=== PATIENT | female | born 1980 | race Caucasian/White ===

== ENCOUNTER 2021-01-07 10:27 | Emergency (ER) | payer OTHER, SELFPAY ==
[2021-01-07] VITALS (10 sets, daily range): BP systolic 115–142; BP diastolic 66–82; PULSE 60–77; RESP 14–23; TEMP 37.1; O2SAT 98–99; BMI 39.7
--- NOTE | 2021-01-07 10:36 | DI.RAD.S_ITS ---
PROCEDURE: XR CHEST 1V INDICATIONS: chest pain TECHNIQUE: One view of the chest was acquired. COMPARISON: None. FINDINGS: Surgical changes and devices: None. Lungs and pleura: Lungs are clear. No pleural effusions or pneumothorax. Mediastinum: Mediastinal contours appear normal. Heart size is normal. Bones and chest wall: No suspicious bony lesions. Overlying soft tissues appear unremarkable. IMPRESSION: No acute cardiopulmonary disease. Dictated by: Trinidad Boyd M.D. on 01/07/2021 at 11:08 Approved by: Trinidad Boyd M.D. on 01/07/2021 at 11:09
--- NOTE | 2021-01-07 10:36 | DI.RAD.S_ITS ---
PROCEDURE: XR SHOULDER LT MIN 2V INDICATIONS: shoulder pain, radiates to chest. TECHNIQUE: 2 views of the shoulder were acquired. COMPARISON: None. FINDINGS: Bones: No fractures or dislocations. No suspicious bony lesions. Visualized ribs appear intact. Soft tissues: No suspicious soft tissue calcifications. IMPRESSION: No acute osseous abnormalities. Dictated by: Trinidad Boyd M.D. on 01/07/2021 at 11:10 Approved by: Trinidad Boyd M.D. on 01/07/2021 at 11:11
--- NOTE | 2021-01-07 10:42 | ED.CHESTPAIN ---
HPI - Chest Pain General Chief Complaint: Chest Pain Stated Complaint: Rule out cardiac sent from her Drs. Time Seen by Provider: 01/07/21 10:37 Source: patient Mode of arrival: Ambulatory Limitations: no limitations History of Present Illness HPI narrative: Patient sent here from urgent care for non reproducible left-sided shoulder pain starting last that has progressed now to infra clavicular area. No dyspnea no nausea, no diaphoresis no neuro complaints. No recent exertional chest pain. Does not take blood pressure medication or cholesterol medication. No family history of coronary disease. Has not had stress test in the past. No relief with NSAIDs at home. No injury to the shoulder. Currently 12/05 discomfort MD complaint: chest pain Related Data Home Medications Medication Instructions Recorded Confirmed brimonidine [Mirvaso] 1 gm TOPICAL #0 01/02/17 ivermectin [Soolantra] 1 moustapha TP #0 01/02/17 topiramate [Topamax] 25 mg PO BID #0 08/21/17 Previous Rx's Medication Instructions Recorded sumatriptan succinate [Imitrex] 50 mg PO QDAY #20 tab 12/29/17 Allergies Allergy/AdvReac Type Severity Reaction Status Date / Time No Known Drug Allergies Allergy Verified 01/07/21 10:40 Review of Systems Review of Systems Narrative: GENERAL: Denies chills, fatigue, malaise, fever, sweats. HEENT: Denies sinus pain, ear pain, sore throat RESPIRATORY: Denies dyspnea, cough CARDIOVASCULAR: Complains chest pain, denies palpitations GASTROINTESTINAL: Denies nausea, vomiting, abdominal pain : Denies dysuria, frequency, hematuria MUSCULOSKELETAL: denies muscle or bony pain SKIN: Denies rash, skin lesions NEUROLOGIC: Denies weakness, numbness ROS Unobtainable: All systems reviewed & are unremarkable except as noted in HPI and below Patient History Medical History (Updated 01/07/21 @ 14:22 by Jah Maki MD) Migraine with aura and without status migrainosus, not intractable (11/06/15) Surgical History History of third molar tooth extraction Status post laparoscopic supracervical hysterectomy (05/05/16) Status post tonsillectomy and adenoidectomy Social History Smoking Status: Never smoker Smoking Status: Never smoker alcohol intake frequency: 0-2 drinks per day Substance Use Type: does not use Exam Narrative Exam Narrative: GENERAL: in no distress, not toxic not dyspneic HEAD: Normocephalic. EYES: Pupils equal round No scleral icterus. No injection no discharge ENT: Mucous membranes moist. NECK: Trachea midline. CARDIOVASCULAR: Regular rate and rhythm without murmurs RESPIRATORY: Clear to auscultation. Breath sounds equal bilaterally. No wheezes, rales, or rhonchi. GASTROINTESTINAL: Abdomen soft, non-tender EXTREMITIES: No gross deformities. Nontender left shoulder. Full active range of motion without any discomfort or pain. Calves nontender BACK: No flank tenderness. NEURO: AOx4. SKIN: Warm and dry PSYCH: Not anxious, is cooperative Initial Vital Signs Initial Vital Signs: Vital Signs Temperature 98.7 F 01/07/21 10:37 Pulse Rate 67 01/07/21 10:37 Respiratory Rate 14 01/07/21 10:37 Blood Pressure 135/71 01/07/21 10:37 Pulse Oximetry 99 01/07/21 10:37 Course Course Course Narrative: Patient did have chest pain relief with nitro paste. I did speak with hospice Dr. oDss. He did see patient at bedside, he has decided patient has low risk factors and low heart score and patient does not want to be admitted and go home. No admission Orders Ordered: Discontinued Medications Acetaminophen (Acetaminophen 325 Mg Tablet) 975 mg PO NOW ONE Stop: 01/07/21 12:37 Last Admin: 01/07/21 12:39 Dose: 975 mg Documented by: JAKOB Aspirin (Aspirin 81 Mg Chew Tab) 324 mg PO NOW ONE Stop: 01/07/21 10:43 Last Admin: 01/07/21 11:18 Dose: 324 mg Documented by: JAKOB Nitroglycerin (Nitroglycerin Oint 1 Inch/Gm Oint...G.) 1 inch TOP NOW ONE Stop: 01/07/21 10:42 Last Admin: 01/07/21 11:17 Dose: 1 inch Documented by: JAKOB Reevaluation(s) Reevaluation #1: No chest pain after nitro paste. Reviewed results with patient. Understands I will be speaking with assembler billiard table and hospitalist for further disposition Time: 12:40 Reevaluation #2: Patient does not want to be admitted. She spoke with hospitalist Dr. Doss, she does not want any further testing or repeat heart enzymes. Time: 14:17 Consultations Consultation #1: Spoke with cardiology dr mead, recommends patient to be admitted for stress test. Time: 12:43 Consultation #2: Spoke with Dr. Doss, he would like to see patient 1st before deciding for disposition. Time: 12:50 Vital Signs Vital signs: Vital Signs - 8 hr 01/07/21 10:37 01/07/21 11:17 01/07/21 12:15 Temperature 98.7 F Pulse Rate 67 65 Respiratory Rate 14 14 Blood Pressure 135/71 142/82 H Pulse Oximetry 99 98 01/07/21 12:31 01/07/21 12:32 01/07/21 13:00 Temperature Pulse Rate 77 62 62 Respiratory Rate 20 16 Blood Pressure 130/66 118/68 Pulse Oximetry 99 99 01/07/21 13:30 01/07/21 14:00 01/07/21 14:01 Temperature Pulse Rate 61 60 63 Respiratory Rate 16 23 18 Blood Pressure 115/68 Pulse Oximetry 01/07/21 14:02 Temperature Pulse Rate Respiratory Rate Blood Pressure 125/67 Pulse Oximetry MDM - Chest Pain Differential Diagnosis Differential diagnosis: Likely stable angina, unstable angina pectoris and atypical chest pain Lab Data Attestation: I reviewed the patient's lab results. Result diagrams: 01/07/21 11:01 01/07/21 11:01 Labs: Lab Results 01/07/21 01/07/21 01/07/21 Range/Units 11:01 11:01 11:01 WBC 9.7 (4.5-11.0) X10^3/uL RBC 4.42 (4.0-5.2) X10^6/uL Hgb 14.2 (12.0-16.0) g/dL Hct 40.5 (36-46) % MCV 91.7 (80-100) fL MCH 32.1 (26-34) PG MCHC 35.0 (30-36) % RDW 12.3 (11.6-14.8) % Plt Count 248 (150-400) X10^3/uL Neut % (Auto) 68.9 (50-75) % Lymph % (Auto) 18.4 L (25-40) % [place] % (Auto) 6.8 (3-14) % Eos % (Auto) 5.1 H (2-4) % Baso % (Auto) 0.8 (0-2) % Neut # (Auto) 6700 (0273-5973) /uL Lymph # (Auto) 1800 (3057-9016) /uL [place] # (Auto) 700 (0-900) /uL Eos # (Auto) 500 H (0-450) /uL Baso # (Auto) 100 (0-100) /uL PT 11.9 (10.1-12.7) SECONDS INR 1.0 (0.9-1.3) APTT 33 (26.4-36.2) SECONDS Sodium 137 (137-145) mmol/L Potassium 4.1 (3.4-5.1) mmol/L Chloride 105 (98-107) mmol/L Carbon Dioxide 25 (22-32) mmol/L BUN 14 (7-17) mg/dL Creatinine 0.67 (0.52-1.04) mg/dL Estimated GFR > 60.0 (>60) mL/min BUN/Creatinine Ratio 20.9 (6-22) Glucose 101 H (70-100) mg/dL Calcium 9.4 (8.4-10.2) mg/dL Total Bilirubin 0.4 (0.2-1.3) mg/dL AST 26 (14-36) IU/L ALT 21 (<35) IU/L Alkaline Phosphatase 88 (38-126) U/L Total Creatine Kinase 94 (30-135) U/L CK-MB (CK-2) TNP CK-MB (CK-2) Rel Index TNP Troponin I < 0.012 (0.01-0.034) ng/mL Total Protein 7.0 (6.3-8.2) g/dL Albumin 4.4 (3.5-5.0) g/dL Globulin 2.6 (1.7-4.1) g/dL Albumin/Globulin Ratio 1.7 (1.0-2.8) Lipase 123 (23-300) U/L SARS-CoV-2 (PCR) (Negative) 01/07/21 Range/Units 12:46 WBC (4.5-11.0) X10^3/uL RBC (4.0-5.2) X10^6/uL Hgb (12.0-16.0) g/dL Hct (36-46) % MCV (80-100) fL MCH (26-34) PG MCHC (30-36) % RDW (11.6-14.8) % Plt Count (150-400) X10^3/uL Neut % (Auto) (50-75) % Lymph % (Auto) (25-40) % [place] % (Auto) (3-14) % Eos % (Auto) (2-4) % Baso % (Auto) (0-2) % Neut # (Auto) (3241-7416) /uL Lymph # (Auto) (9767-3102) /uL [place] # (Auto) (0-900) /uL Eos # (Auto) (0-450) /uL Baso # (Auto) (0-100) /uL PT (10.1-12.7) SECONDS INR (0.9-1.3) APTT (26.4-36.2) SECONDS Sodium (137-145) mmol/L Potassium (3.4-5.1) mmol/L Chloride (98-107) mmol/L Carbon Dioxide (22-32) mmol/L BUN (7-17) mg/dL Creatinine (0.52-1.04) mg/dL Estimated GFR (>60) mL/min BUN/Creatinine Ratio (6-22) Glucose (70-100) mg/dL Calcium (8.4-10.2) mg/dL Total Bilirubin (0.2-1.3) mg/dL AST (14-36) IU/L ALT (<35) IU/L Alkaline Phosphatase (38-126) U/L Total Creatine Kinase (30-135) U/L CK-MB (CK-2) CK-MB (CK-2) Rel Index Troponin I (0.01-0.034) ng/mL Total Protein (6.3-8.2) g/dL Albumin (3.5-5.0) g/dL Globulin (1.7-4.1) g/dL Albumin/Globulin Ratio (1.0-2.8) Lipase (23-300) U/L SARS-CoV-2 (PCR) Negative (Negative) Imaging Data Chest x-ray: Radiologist's Impression: [address] [id number] ReportSigned Patient: Rebeca Chris GMR#: [id number]: 1980Acct:[id number]/Sex: 40 / FDate of Service: 01/07/21Loc: EDAccession Number: [id number] Procedure: XR chest 1V Ordering Provider: Jah Maki MD PROCEDURE: XR CHEST 1V INDICATIONS: chest pain TECHNIQUE: One view of the chest was acquired. COMPARISON: None. FINDINGS: Surgical changes and devices: None. Lungs and pleura: Lungs are clear. No pleural effusions or pneumothorax. Mediastinum: Mediastinal contours appear normal. Heart size is normal. Bones and chest wall: No suspicious bony lesions. Overlying soft tissues appear unremarkable. IMPRESSION: No acute cardiopulmonary disease. Dictated by: Trinidad Boyd M.D. on 01/07/2021 at 11:08 Approved by: Trinidad Boyd M.D. on 01/07/2021 at 11:09 Extremity x-ray #1: Radiologist's Impression: [address] [id number] ReportSigned Patient: Rebeca Chris GMR#: [id number]: 1980Acct:[id number]/Sex: 40 / FDate of Service: 01/07/21Loc: EDAccession Number: [id number] Procedure: XR shoulder LT min 2V Ordering Provider: Jah Maki MD PROCEDURE: XR SHOULDER LT MIN 2V INDICATIONS: shoulder pain, radiates to chest. TECHNIQUE: 2 views of the shoulder were acquired. COMPARISON: None. FINDINGS: Bones: No fractures or dislocations. No suspicious bony lesions. Visualized ribs appear intact. Soft tissues: No suspicious soft tissue calcifications. IMPRESSION: No acute osseous abnormalities. Dictated by: Trinidad Boyd M.D. on 01/07/2021 at 11:10 Approved by: Trinidad Boyd M.D. on 01/07/2021 at 11:11 ECG Data Attestation: I personally reviewed and interpreted this ECG as follows: Interpretation: Sinus bradycardia rate 59 otherwise normal EKG. No ST elevation or depression. MDM Narrative Medical decision making narrative: I have spoken with cardiology and recommending admission, I did call hospitalist for admission, Dr. Doss states no indication for admission. He saw and examined patient in the emergency department. He will put a consult note into the chart. Patient re-evaluated by me and she states she does not want to be admitted now. Did speak with her at this time uncertain source of her atypical chest pain shoulder pain. She is to come back at any time if she changes her mind or if any questions or concerns. She agrees with this Discharge Plan Departure Patient Disposition: Home Clinical Impression: Atypical chest pain Instructions: DI for Atypical Chest Pain Activity Restrictions/Additional Instructions: Return immediately if you change your mind to be admitted. Return if any questions or concerns. Call primary care/clinic office today for establishment to have a family doctor to see this week for recheck. Prescriptions: No Action brimonidine [Mirvaso] 0.33 % gel 1 gm Topical Qty: 0 RF: 0 ivermectin [Soolantra] 1 % cream 1 moustapha TP Qty: 0 RF: 0 topiramate [Topamax] 25 MG tablet 25 mg PO BID Qty: 0 RF: 0 sumatriptan succinate [Imitrex] 50 MG tablet 50 mg PO QDAY Qty: 20 RF: 3 Referrals: [facility] [Outside]
[2021-01-07 11:17] LABS: Add Manual Diff / Slide Review NO; Basophils Absolute Auto 100 /uL (0-100); Basophils Percent Auto 0.8 % (0-2); Eosinophils Absolute Auto 500 /uL (0-450); Eosinophils Percent Auto 5.1 % (2-4); Hematocrit 40.5 % (36-46); Hemoglobin 14.2 g/dL (12.0-16.0); Lymphocytes Absolute Auto 1800 /uL (1100-4500); Lymphocytes Percent Auto 18.4 % (25-40); Mean Corpuscular Hemoglobin 32.1 PG (26-34); Mean Corpuscular Volume 91.7 fL (80-100); Monocytes Absolute Auto 700 /uL (0-900); Monocytes Percent Auto 6.8 % (3-14); Neutrophils Absolute Auto 6700 /uL (1500-7000); Neutrophils Percent Auto 68.9 % (50-75); Platelet Count 248 X10^3/uL (150-400); Red Blood Cell Count 4.42 X10^6/uL (4.0-5.2); Red Cell Distribution Width 12.3 % (11.6-14.8); White Blood Cell Count 9.7 X10^3/uL (4.5-11.0)
[2021-01-07] MEDS: NITROGLYCERIN OINT 1 INCH/GM OINT...G. TOP (11:17)
[2021-01-07] MEDS: ASPIRIN 81 MG CHEW TAB 324 MG PO (11:18)
[2021-01-07 11:22] LABS: Prothrombin Time 11.9 SECONDS (10.1-12.7)
[2021-01-07 11:25] LABS: Alanine Aminotransferase 21 IU/L (<35); Albumin 4.4 g/dL (3.5-5.0); Albumin Globulin Ratio 1.7 (1.0-2.8); Alkaline Phosphatase 88 U/L (38-126); Aspartate Aminotransferase 26 IU/L (14-36); BUN Creatinine Ratio 20.9 (6-22); Bilirubin Total 0.4 mg/dL (0.2-1.3); Blood Urea Nitrogen 14 mg/dL (7-17); Calcium 9.4 mg/dL (8.4-10.2); Carbon Dioxide 25 mmol/L (22-32); Chloride 105 mmol/L (98-107); Creatine Kinase 94 U/L (30-135); Estimated Glomerular Filt Rate > 60.0 mL/min (>60); Globulin 2.6 g/dL (1.7-4.1); Glucose 101 mg/dL (70-100); HEMOLYSIS < 15 (0-50); Lipase 123 U/L (23-300); PTT Partial Thromboplastin Tim 33 SECONDS (26.4-36.2); Potassium 4.1 mmol/L (3.4-5.1); Sodium 137 mmol/L (137-145)
[2021-01-07 11:37] LABS: Troponin I < 0.012 ng/mL (0.01-0.034)
[2021-01-07] MEDS: ACETAMINOPHEN 325 MG TABLET 975 MG PO (12:39)
[2021-01-07 13:55] LABS: COVID19 - ADMIT (NP swab/PCR) Negative (Negative)
--- NOTE | 2021-01-07 14:02 | PM.CN ---
History of Present Illness Consult details Date Patient Seen: 01/07/21 Time Patient Seen: 14:02 Chief complaint: Rule out cardiac sent from her Drs. Reason for consult: Chest pain Requesting provider: Jah Maki Narrative: Rebeca Chris is a 40-year-old female with a past medical history of migraines who initially presented to the outpatient clinics with concern for left-sided shoulder pain which has started radiating into her left chest area. She 1st noticed this about 4 days ago. She received her 1st dose of the phizer COVID-19 vaccine on Thursday, and the following day she went on a trip to [employer]. After that car ride she noticed a dull ache primarily over her left shoulder. This pain seemed to worsen with lifting and movement. She did not try any pain relief at home. It initially improved somewhat but did continued to linger but starting this morning she woke up with somewhat worsened left shoulder pain. She describes the pain as a dull ache which started in her left shoulder and radiates over the top into her left chest area and somewhat down into her armpit. She denies any palpitations, shortness of breath, nausea, vomiting, abdominal pain, diaphoresis, headaches, vision changes. She denies pain like this previously. Patient states that over the weekend and over the past week or so she has been working in her garden with heavy lifting of some stones. Patient denies any significant family history of cardiac disease, she has never smoked and denies marijuana or illicit substance use. She does occasionally drink 1-2 glasses of wine but rarely. She is natolol, and Imitrex for migraines. Initial vital signs were unremarkable, however the patient did develop a mild hypertension which did improved. The remainder of her vital signs are unremarkable. Laboratory evaluation revealed an unremarkable CBC, unremarkable coagulation studies, and an unremarkable chemistry panel with a negative troponin. COVID-19 testing was negative. At most, HEART score is a 2. Meds Home Medications and Allergies Home Medications Medication Instructions Recorded Confirmed Type brimonidine [Mirvaso] 1 gm TOPICAL #0 01/02/17 History ivermectin [Soolantra] 1 moustapha TP #0 01/02/17 History topiramate [Topamax] 25 mg PO BID #0 08/21/17 History sumatriptan succinate [Imitrex] 50 mg PO QDAY #20 tab 12/29/17 Rx Allergies Allergy/AdvReac Type Severity Reaction Status Date / Time No Known Drug Allergies Allergy Verified 01/07/21 10:40 Review of Systems Review of Systems Narrative: All other systems reviewed with the patient and are negative unless otherwise stated. Exam Vital Signs (past 8 hours): - 01/07/21 10:37 01/07/21 11:17 01/07/21 12:15 Temperature 98.7 F Pulse Rate 67 65 Respiratory Rate 14 14 Blood Pressure 135/71 142/82 H Pulse Oximetry 99 98 01/07/21 12:31 01/07/21 12:32 01/07/21 13:00 Temperature Pulse Rate 77 62 62 Respiratory Rate 20 16 Blood Pressure 130/66 118/68 Pulse Oximetry 99 99 01/07/21 13:30 Temperature Pulse Rate 61 Respiratory Rate 16 Blood Pressure 115/68 Pulse Oximetry Oxygen Delivery Method Room Air Narrative Exam Narrative: GENERAL APPEARANCE: Well developed, well nourished, in no acute distress. SKIN: Inspection of the skin reveals no rashes, ulcerations or petechiae. HEENT: Normocephalic atraumatic, extraocular muscles are intact, oropharynx is clear and mucous membranes are moist, neck is supple without adenopathy NECK: Supple and symmetric. There was no thyroid enlargement, and no tenderness, or masses were felt. CHEST: Normal AP diameter and normal contour without any kyphoscoliosis. LUNGS: Auscultation of the lungs revealed no wheezes, rhonchi, or rales. CARDIOVASCULAR: There was a regular rate and rhythm without any murmurs, gallops, rubs. Peripheral pulses were 2+ and symmetric. ABDOMEN: Soft and nontender with normal bowel sounds. No ascites was noted. MUSCULOSKELETAL: There was no tenderness or effusions noted. Muscle strength and tone were normal. Normal ROM currently of the left shoulder. Unable to reproduce shoulder pain. EXTREMITIES: No cyanosis, clubbing or edema. NEUROLOGIC: Alert and oriented x 3. Normal affect. Strength is +5/5 in the Upper Extremities and Lower Extremities Bilaterally. Objective ECG Impression: Sinus bradycardia Imaging Chest x-ray: My impression: Unremarkable chest x-ray Radiologist's impression: PROCEDURE: XR CHEST 1V INDICATIONS: chest pain TECHNIQUE: One view of the chest was acquired. COMPARISON: None. FINDINGS: Surgical changes and devices: None. Lungs and pleura: Lungs are clear. No pleural effusions or pneumothorax. Mediastinum: Mediastinal contours appear normal. Heart size is normal. Bones and chest wall: No suspicious bony lesions. Overlying soft tissues appear unremarkable. IMPRESSION: No acute cardiopulmonary disease. Dictated by: Trinidad Boyd M.D. on 01/07/2021 at 11:08 Approved by: Trinidad Boyd M.D. on 01/07/2021 at 11:09 Labs Result Diagrams: 01/07/21 11:01 01/07/21 11:01 Labs: Laboratory Results - last 24 hr 01/07/21 01/07/21 01/07/21 11:01 11:01 11:01 WBC 9.7 RBC 4.42 Hgb 14.2 Hct 40.5 MCV 91.7 MCH 32.1 MCHC 35.0 RDW 12.3 Plt Count 248 Neut % (Auto) 68.9 Lymph % (Auto) 18.4 L [place] % (Auto) 6.8 Eos % (Auto) 5.1 H Baso % (Auto) 0.8 Neut # (Auto) 6700 Lymph # (Auto) 1800 [place] # (Auto) 700 Eos # (Auto) 500 H Baso # (Auto) 100 PT 11.9 INR 1.0 APTT 33 Sodium 137 Potassium 4.1 Chloride 105 Carbon Dioxide 25 BUN 14 Creatinine 0.67 Estimated GFR > 60.0 BUN/Creatinine Ratio 20.9 Glucose 101 H Calcium 9.4 Total Bilirubin 0.4 AST 26 ALT 21 Alkaline Phosphatase 88 Total Creatine Kinase 94 CK-MB (CK-2) TNP CK-MB (CK-2) Rel Index TNP Troponin I < 0.012 Total Protein 7.0 Albumin 4.4 Globulin 2.6 Albumin/Globulin Ratio 1.7 Lipase 123 SARS-CoV-2 (PCR) 01/07/21 12:46 WBC RBC Hgb Hct MCV MCH MCHC RDW Plt Count Neut % (Auto) Lymph % (Auto) [place] % (Auto) Eos % (Auto) Baso % (Auto) Neut # (Auto) Lymph # (Auto) [place] # (Auto) Eos # (Auto) Baso # (Auto) PT INR APTT Sodium Potassium Chloride Carbon Dioxide BUN Creatinine Estimated GFR BUN/Creatinine Ratio Glucose Calcium Total Bilirubin AST ALT Alkaline Phosphatase Total Creatine Kinase CK-MB (CK-2) CK-MB (CK-2) Rel Index Troponin I Total Protein Albumin Globulin Albumin/Globulin Ratio Lipase SARS-CoV-2 (PCR) Negative Assessment & Plan Assessment & Plan narrative: Rebeca Chris is a 40-year-old female with a past medical history of migraines who initially presented to the outpatient clinics with concern for left-sided shoulder pain which has started radiating into her left chest area. Based on apparent clinical history etiology of her left shoulder and chest plain is most likely musculoskeletal at this time. I recommended that the patient can trial NSAID therapy at home, and avoid heavy lifting or gardening for a few days. If her symptoms continue, she is quite safe for follow-up with her primary care physician for further outpatient evaluation. Her current primary care physician is in [place], but she is looking to establish care in this area. At most, her heart score is a 2, and her EKG, chest x-ray, and history are reassuring at this time. I discussed with the patient that it is quite safe to pursue further evaluation as an outpatient given her fairly low risk profile.
== END 2021-01-07 14:45 | disposition home or self-care (01) ==
PROVIDERS: Emergency Provider Emergency Medicine
DX: R07.89 Other chest pain (principal); M25.512 Pain in left shoulder; Z20.828 Contact with and (suspected) exposure to other viral communicable diseases
CPT/HCPCS: 36415; 71045; 73030; 80053; 82550; 83690; 84484; 85025; 85610; 85730; 87635; 93005; 93010; 99284; C9803

== ENCOUNTER 2021-10-25 19:33 | Emergency (ER) | payer OTHER, SELFPAY ==
[2021-10-25 19:38] VITALS: BP 180/90; PULSE 68; RESP 18; TEMP 36.8; O2SAT 100; BMI 38.6
--- NOTE | 2021-10-25 19:51 | DI.RAD.S_ITS ---
PROCEDURE: XR CHEST 1V INDICATIONS: chest pain TECHNIQUE: One view of the chest was acquired. COMPARISON: [facility], CR, XR CHEST 1V, 01/07/2021, 10:51. FINDINGS: Surgical changes and devices: None. Lungs and pleura: On this semiupright portable chest examination, no large pneumothorax or large pleural effusions are seen. No focal infiltrates are seen. Mediastinum: Mediastinal contours appear normal. Heart size is normal. Bones and chest wall: No suspicious bony lesions. Overlying soft tissues appear unremarkable. IMPRESSION: Portable chest within normal limits. Dictated by: Reid Lowry M.D. on 10/25/2021 at 19:35 Approved by: Reid Lowry M.D. on 10/25/2021 at 19:35
[2021-10-25 20:03] VITALS: PULSE 74; RESP 21
[2021-10-25 20:04] VITALS: BP 145/87; PULSE 68; RESP 18; O2SAT 100
--- NOTE | 2021-10-25 20:16 | PC.NURSE ---
Reports sudden neck stiffness/headache pain, nausea while on a very stressful phone call with family. Reports now only having annoying headache rates pain 12/05.
[2021-10-25 20:19] LABS: Add Manual Diff / Slide Review NO; Basophils Absolute Auto 0 /uL (0-100); Basophils Percent Auto 0.4 % (0-2); Eosinophils Absolute Auto 300 /uL (0-450); Eosinophils Percent Auto 2.6 % (2-4); Hematocrit 41.3 % (36-46); Hemoglobin 14.4 g/dL (12.0-16.0); Lymphocytes Absolute Auto 1700 /uL (1100-4500); Lymphocytes Percent Auto 16.5 % (25-40); Mean Corpuscular Hemoglobin 31.9 PG (26-34); Mean Corpuscular Volume 91.1 fL (80-100); Monocytes Absolute Auto 600 /uL (0-900); Monocytes Percent Auto 5.9 % (3-14); Neutrophils Absolute Auto 7600 /uL (1500-7000); Neutrophils Percent Auto 74.6 % (50-75); Platelet Count 237 X10^3/uL (150-400); Red Blood Cell Count 4.53 X10^6/uL (4.0-5.2); White Blood Cell Count 10.2 X10^3/uL (4.5-11.0)
[2021-10-25 20:30] VITALS: PULSE 72; RESP 22; O2SAT 100
[2021-10-25 20:30] LABS: Alanine Aminotransferase 17 IU/L (<35); Albumin 4.6 g/dL (3.5-5.0); Albumin Globulin Ratio 1.5 (1.0-2.8); Alkaline Phosphatase 69 U/L (38-126); Aspartate Aminotransferase 23 IU/L (14-36); BUN Creatinine Ratio 24.1 (6-22); Bilirubin Total 0.6 mg/dL (0.2-1.3); Blood Urea Nitrogen 19 mg/dL (7-17); Calcium 9.4 mg/dL (8.4-10.2); Carbon Dioxide 26 mmol/L (22-32); Chloride 104 mmol/L (98-107); Creatine Kinase 85 U/L (30-135); Estimated Glomerular Filt Rate > 60.0 mL/min (>60); Glucose 132 mg/dL (70-100); HEMOLYSIS < 15 (0-50); Lipase 343 U/L (23-300); Potassium 3.7 mmol/L (3.4-5.1); Sodium 135 mmol/L (137-145); Total Protein 7.6 g/dL (6.3-8.2)
[2021-10-25 20:41] LABS: Troponin I < 0.012 ng/mL (0.01-0.034)
[2021-10-25 20:41] LABS: COVID19 -Nasal RAPID Negative (Negative)
[2021-10-25 21:40] VITALS: PULSE 90; O2SAT 99
--- NOTE | 2021-10-25 21:49 | DI.CT.S_ITS ---
PROCEDURE: CT HEAD/BRAIN WO CON INDICATIONS: sudden headache TECHNIQUE: Noncontrast 4.5 mm thick angled axial sections acquired from the foramen magnum to the vertex, with coronal and sagittal reformats. For radiation dose reduction, the following was used: automated exposure control, adjustment of mA and/or kV according to patient size. COMPARISON: None. FINDINGS: Image quality: Excellent. CSF spaces: Basal cisterns are patent. No extra-axial fluid collections. Ventricles are normal in size and shape. Brain: No midline shift. No intracranial masses or hemorrhage. Kaye-white matter interface is normal. Skull and face: Calvarium and visualized facial bones are intact, without suspicious lesions. Sinuses: Visualized sinuses and mastoids are clear. IMPRESSION: No acute intracranial hemorrhage is seen. No acute intracranial process is seen. Dictated by: Reid Lowry M.D. on 10/25/2021 at 21:15 Approved by: Reid Lowry M.D. on 10/25/2021 at 21:15
--- NOTE | 2021-10-25 21:53 | ED.HA ---
HPI - Headache General Chief Complaint: Headache Stated Complaint: HEAD PAIN HIGH BLOOD PRESSURE Time Seen by Provider: 10/25/21 21:36 Mode of arrival: Ambulatory History of Present Illness HPI Narrative: Patient is a 41-year-old female who presents with sudden onset headache. She actually has a history of migraine headaches over this was different. She states that she was on the phone talking to family having some family drama about watching family members who have COVID. She got sudden onset of neck pain and spasm and all the way up into her head. She felt like she might pass out but she did not. At that time they took her blood pressure was noted to be elevated with systolic in the 170s to 180s. She had no numbness tingling or weakness. She did not have any facial droop or difficulty speaking according to her . Pain has dulled since being in the emergency department without any medication. Her neck still feels a little bit funny. His arm strength is good without tingling.blood Pressure has also come down. Related Data Home Medications Medication Instructions Recorded Confirmed brimonidine 0.33 % topical gel 1 gm TOPICAL #0 01/02/17 (Mirvaso) ivermectin 1 % topical cream 1 moustapha TP #0 01/02/17 (Soolantra) topiramate 25 mg tablet (Topamax) 25 mg PO BID #0 08/21/17 Previous Rx's Medication Instructions Recorded sumatriptan succinate 50 mg tablet 50 mg PO QDAY #20 tab 12/29/17 (Imitrex) Allergies Allergy/AdvReac Type Severity Reaction Status Date / Time No Known Drug Allergies Allergy Verified 01/07/21 10:40 Review of Systems Review of Systems Narrative: GENERAL: Denies chills, fatigue, malaise, fever, sweats, travel HEENT: Denies sinus pain, ear pain, sore throat, difficulty swallowing, neck pain RESPIRATORY: Denies dyspnea, cough, wheezing, hemoptysis, sputum. CARDIOVASCULAR: Denies chest pain, palpitations, orthopnea, edema GASTROINTESTINAL: Denies nausea, vomiting, abdominal pain, diarrhea, constipation, melena. : Denies dysuria, frequency, incontinence, hematuria, urinary retention, flank pain. MUSCULOSKELETAL: Denies weakness, joint pain, or bony pain SKIN: No rash, no erythema, no pruritus NEUROLOGIC: See HPI PSYCHIATRIC: No concerning psychosocial issues. 12 point review of systems is negative except for those stated above and HPI Patient History Medical History Migraine with aura and without status migrainosus, not intractable (11/06/15) Surgical History History of third molar tooth extraction Status post laparoscopic supracervical hysterectomy (05/05/16) Status post tonsillectomy and adenoidectomy Social History Smoking Status: Never smoker Smoking Status: Never smoker alcohol intake frequency: 0-2 drinks per day Substance Use Type: does not use Exam Initial Vital Signs Initial Vital Signs: Vital Signs Temperature 98.2 F 10/25/21 19:38 Pulse Rate 68 10/25/21 19:38 Respiratory Rate 18 10/25/21 19:38 Blood Pressure 180/90 H 10/25/21 19:38 Pulse Oximetry 100 10/25/21 19:38 GENERAL: Alert well-appearing 41-year-old female in no acute distress. HEENT: Head atraumatic,EOMI, pupils reactive, face symmetric, moist mucous membranes NECK: Supple no vertebral tenderness no JVD no bruits CARDIOVASCULAR: Regular rate and rhythm without murmurs, rubs or gallops. RESPIRATORY: Breath sounds equal bilaterally, no wheezes rales or rhonchi. ABDOMEN: Soft, nontender. Normoactive bowel sounds all 4 quadrants. No guarding or rebound. EXTREMITIES: Normal range of motion, no clubbing or edema. Neurovascularly intact NEUROLOGICAL: Alert and oriented x4.Normal gait and speech. Cranial nerves II through XII grossly intact. Good [id number], good [id number], strength equal bilaterally, no dysarthria or aphasia, sensation in tact to soft touch bilaterally, no visual changes, no facial droop SKIN: Warm, dry, no laceration, no petechiae, no rashes or lesions. Scores NIH Stroke Scale Level of Conciousness: Alert, keenly responsive Ask month/age: Answers both questions correctly. Open/close eyes, close hand: Performs both tasks correctly Best gaze horizontal: Normal Visual choudhary: No visual loss Facial palsy: Normal symetrical movement Left arm drift: No drift for full 10 sec Right arm drift: No drift for full 10 sec Left leg drift: No drift for full 5 sec Right leg drift: No drift for full 5 sec Limb ataxia: Absent Sensory on face/arms/legs: Normal, no sensory loss Best language: No aphasia, normal Dysarthria: Normal Extinction or inattention: No abnormality Total NIH Stroke scale score: 0 Course Orders Ordered: ED Orders 10/25/21 19:51 XR chest 1V Stat EKG-12 Lead Stat 10/25/21 20:00 Complete Blood Count AUTO DIFF Stat Comprehensive Metabolic Panel Stat Lipase Stat Magnesium Stat Troponin & CK Cardiac Panel Stat 10/25/21 20:20 COVID19 -Nasal swab/Pre-Proc Stat 10/25/21 21:49 CT head/brain wo con Stat Discontinued Medications Sumatriptan Succinate (Sumatriptan 6 Mg/0.5 Ml Vial) 6 mg SUBCUT NOW ONE Stop: 10/25/21 22:23 Last Admin: 10/25/21 22:34 Dose: 6 mg Documented by: ALYSON Vital Signs Vital signs: Vital Signs - 8 hr 10/25/21 19:38 10/25/21 20:03 10/25/21 20:04 Temperature 98.2 F Pulse Rate 68 74 68 Respiratory Rate 18 21 18 Blood Pressure 180/90 H 145/87 H Pulse Oximetry 100 100 10/25/21 20:30 10/25/21 21:40 10/25/21 22:00 Temperature Pulse Rate 72 90 84 Respiratory Rate 22 Blood Pressure Pulse Oximetry 100 99 100 MDM - Headache Lab Data Result diagrams: 10/25/21 20:00 10/25/21 20:00 Labs: Lab Results 10/25/21 10/25/21 10/25/21 Range/Units 20:00 20:00 20:20 WBC 10.2 (4.5-11.0) X10^3/uL RBC 4.53 (4.0-5.2) X10^6/uL Hgb 14.4 (12.0-16.0) g/dL Hct 41.3 (36-46) % MCV 91.1 (80-100) fL MCH 31.9 (26-34) PG MCHC 35.0 (30-36) % RDW 12.0 (11.6-14.8) % Plt Count 237 (150-400) X10^3/uL Neut % (Auto) 74.6 (50-75) % Lymph % (Auto) 16.5 L (25-40) % [place] % (Auto) 5.9 (3-14) % Eos % (Auto) 2.6 (2-4) % Baso % (Auto) 0.4 (0-2) % Neut # (Auto) 7600 H (9360-2592) /uL Lymph # (Auto) 1700 (3915-1875) /uL [place] # (Auto) 600 (0-900) /uL Eos # (Auto) 300 (0-450) /uL Baso # (Auto) 0 (0-100) /uL Sodium 135 L (137-145) mmol/L Potassium 3.7 (3.4-5.1) mmol/L Chloride 104 (98-107) mmol/L Carbon Dioxide 26 (22-32) mmol/L BUN 19 H (7-17) mg/dL Creatinine 0.79 (0.52-1.04) mg/dL Estimated GFR > 60.0 (>60) mL/min BUN/Creatinine Ratio 24.1 H (6-22) Glucose 132 H (70-100) mg/dL Calcium 9.4 (8.4-10.2) mg/dL Magnesium 2.0 (1.6-2.3) mg/dL Total Bilirubin 0.6 (0.2-1.3) mg/dL AST 23 (14-36) IU/L ALT 17 (<35) IU/L Alkaline Phosphatase 69 (38-126) U/L Total Creatine Kinase 85 (30-135) U/L CK-MB (CK-2) TNP CK-MB (CK-2) Rel Index TNP Troponin I < 0.012 (0.01-0.034) ng/mL Total Protein 7.6 (6.3-8.2) g/dL Albumin 4.6 (3.5-5.0) g/dL Globulin 3.0 (1.7-4.1) g/dL Albumin/Globulin Ratio 1.5 (1.0-2.8) Lipase 343 H (23-300) U/L SARS-CoV-2 (PCR) Negative (Negative) Urine Dip Bedside Urine Glucose Negative Bedside Urine Bilirubin - Negative Bedside Urine Ketone - Negative Urine Specific [place] 1.015 Bedside Urine Occult Blood - Negative Bedside Urine pH 5.5 Bedside Urine Protein - Negative Bedside Urine Urobilinogen - Negative Bedside Urine Nitrite - Negative Bedside Urine Leukocytes - Negative Esterase Imaging Data CT scan - head: Radiologist's Impression: PROCEDURE:? CT HEAD/BRAIN WO CON ? INDICATIONS:? sudden headache ? TECHNIQUE:? Noncontrast 4.5 mm thick angled axial sections acquired from the foramen magnum to the vertex, with coronal and sagittal reformats.? For radiation dose reduction, the following was used:? automated exposure control, adjustment of mA and/or kV according to patient size.? ? COMPARISON:? None. ? FINDINGS:? Image quality:? Excellent.? ? CSF spaces:? Basal cisterns are patent.? No extra-axial fluid collections.? Ventricles are normal in size and shape.? ? Brain:? No midline shift.? No intracranial masses or hemorrhage.? Kaye-white matter interface is normal.? ? Skull and face:? Calvarium and visualized facial bones are intact, without suspicious lesions.? ? Sinuses:? Visualized sinuses and mastoids are clear.? ? IMPRESSION:? No acute intracranial hemorrhage is seen.? ? No acute intracranial process is seen.? ? ? Dictated by: Reid Lowry M.D. on 10/25/2021 at 21:15? ECG Data Interpretation: Normal sinus rhythm rate 64 OH interval 180 QRS is [address] changes similar to previous EKG MDM Narrative Medical decision making narrative: Patient's pain improved to a dull ache without any medication blood pressure also improved. Head CT is negative for subarachnoid hemorrhage. His at this time symptoms do not quite correlate. With neck pain and spasm carotid artery dissection was has thought of all however does not seem to clinically correlate she does not have significant risk factors pain in neck has improved. She states she is not supposed to take NSAIDs due to recent laser procedure on her face for rosacea. She does have a dull minor ache and typically she takes Imitrex. Was given Imitrex subQ. At this time I do not suspect subarachnoid hemorrhage with improving symptoms. Did discuss this with both patient and stated that LP was the only way to definitively diagnose at this time. However with improving symptoms I do not think this is indicated. Discharge Plan Departure Patient Disposition: Home Clinical Impression: Headache Instructions: DI for Headache Activity Restrictions/Additional Instructions: *You have been diagnosed with headache *What to do: At this time difficult to tell cause of headache found what it is improving for you. Please monitor your blood pressure once a day and record. If it is persistently elevated may need medication please discuss with her primary care provider *Continue to take medications as directed *Follow up with your primary care provider in 2-3 days or call [phone] *Return to ER if you should have increasing headache, neck pain, numbness, tingling, speech difficulty visual changes or any new, worsening or concerning symptoms Prescriptions: No Action brimonidine [Mirvaso] 0.33 % gel 1 gm Topical Qty: 0 0RF ivermectin [Soolantra] 1 % cream 1 moustapha TP Qty: 0 0RF topiramate [Topamax] 25 MG tablet 25 mg PO BID Qty: 0 0RF sumatriptan succinate [Imitrex] 50 MG tablet 50 mg PO QDAY Qty: 20 3RF
[2021-10-25 22:00] VITALS: PULSE 84; O2SAT 100
[2021-10-25] MEDS: SUMAtriptan 6 MG/0.5 ML VIAL SUBCUT (22:34)
== END 2021-10-25 22:55 | disposition home or self-care (01) ==
PROVIDERS: Emergency Provider Emergency Medicine
DX: R51.9 Headache, unspecified (principal); Z20.822 Contact with and (suspected) exposure to COVID-19
CPT/HCPCS: 36415; 70450; 71045; 80053; 81003; 82550; 83690; 83735; 84484; 85025; 87635; 93005; 96372; 99284; C9803; J3030

== ENCOUNTER → 2022-05-14 09:55 | Outpatient (CLI) | payer OTHER, SELFPAY | PROVIDERS: Visit Provider Nurse Practitioner Critical Care Medicine | DX: J02.9 Acute pharyngitis, unspecified (principal) | CPT/HCPCS: 87070 ==

== ENCOUNTER → 2022-08-12 09:01 | Outpatient (CLI) | payer OTHER, SELFPAY ==
--- NOTE | 2022-08-12 | DI.RAD.S_ITS ---
PROCEDURE: XR CERVICAL SPINE 4V OR 5V INDICATIONS: Subluxation complex (vertebral) of cervical region TECHNIQUE: 5 views of the cervical spine were acquired. COMPARISON: None. FINDINGS: Bones: No fractures or dislocations to the C7-T1 level. No suspicious bony lesions. There is normal range of motion between flexion and extension, with preserved normal bony alignment. Soft tissues: Prevertebral soft tissues are normal in thickness. IMPRESSION: Normal range of motion. Dictated by: Katarina Meadows M.D. on 08/12/2022 at 15:48 Approved by: Katarina Meadows M.D. on 08/12/2022 at 15:49
== END ==
PROVIDERS: Referring Provider Chiropractor; Visit Provider Chiropractor
DX: M99.11 Subluxation complex (vertebral) of cervical region (principal); M54.2 Cervicalgia
CPT/HCPCS: 72050

== ENCOUNTER 2023-04-08 17:10 | Emergency (ER) | payer OTHER, SELFPAY ==
[2023-04-08 17:23] VITALS: BP 149/81; PULSE 72; RESP 18; TEMP 37.3; O2SAT 100; BMI 40.3
--- NOTE | 2023-04-08 17:26 | DI.US.S_ITS ---
PROCEDURE: US PERIPH VENOUS LOW EXTREM LT INDICATIONS: pain upper calf traveling up toward hamstring TECHNIQUE: Real-time imaging, as well as color and pulse Doppler interrogation, were performed of the lower extremity deep veins from the inguinal ligament to the popliteal fossa. COMPARISON: None. FINDINGS: The common femoral, femoral and popliteal veins are normally compressible, and free of intraluminal thrombus. Color and pulse Doppler demonstrate normal phasic intraluminal flow. There is normal augmentation response to distal compression maneuver. A Perez's cyst is seen that measures 2.5 x 0.8 x 2.4 cm. IMPRESSION: Negative for deep venous thrombosis. Dictated by: Reid Lowry M.D. on 04/08/2023 at 17:06 Approved by: Reid Lowry M.D. on 04/08/2023 at 17:06
--- NOTE | 2023-04-08 18:20 | PC.NURSE ---
patient states that she has been having aching in her leg. thought she sprained something during gardening. Thought is could be varicose veins. She started a hormone replacement therapy in november. Her leg is not hot to touch, not swollen, and not in intense pain. She has not been traveling nor on long trips in a vehicle.
--- NOTE | 2023-04-08 18:27 | ED_ITS ---
HPI - Extremity Problem <Emily Capellan PA-C - Last Filed: 04/08/23 18:31> General Chief complaint: Extremity Problem,Nontraumatic Stated complaint: lt sided calf pain, no known injury Time Seen by Provider: 04/08/23 18:24 Source: patient Mode of arrival: Ambulatory History of Present Illness HPI Narrative: 43-year-old female on hormone replacement therapy presents to the ED with 2 weeks of right knee pain. Patient states the pain is dull, on the back of her left knee. Patient denies numbness, tingling, weakness. Patient denies known trauma. Patient denies chest pain, shortness of breath, lightheadedness, d izziness, syncope. Related Data Home Medications Medication Instructions Recorded Confirmed brimonidine 0.33 % topical gel 1 gm topical ##0 01/02/17 05/14/22 (Mirvaso) ivermectin 1 % topical cream 1 moustapha TP ##0 01/02/17 05/14/22 (Soolantra) topiramate 25 mg tablet (Topamax) 25 mg PO BID ##0 08/21/17 05/14/22 losartan PO 05/14/22 05/14/22 Previous Rx's Medication Instructions Recorded sumatriptan succinate 50 mg tablet 50 mg PO QDAY #20 tabs 12/29/17 (Imitrex) benzocaine 15 mg-menthol 3.6 mg 1 мария mucous membrane Q2-4H PRN 05/14/22 lozenges (Cepacol Sore Throat sore throat #16 ea (benzocaine-menthol)) Allergies Allergy/AdvReac Type Severity Reaction Status Date / Time No Known Drug Allergies Allergy Verified 04/08/23 17:25 Review of Systems <Emily Capellan PA-C - Last Filed: 04/08/23 18:31> Review of Systems ROS Unobtainable: All systems reviewed & are unremarkable except as noted in HPI and below Constitutional Constitutional: Denies chills, Denies fatigue, Denies fever(s), Denies frequent falls, Denies lethargy and Denies weakness Eyes Eyes: Denies change in vision, Denies eye discharge, Denies irritation and Denies loss of vision ENT Ears, Nose, Mouth, and Throat: Denies change in voice, Denies dizziness, Denies neck pain, Denies sore throat and Denies throat swelling Cardiovascular Cardiovascular: Denies chest pain, Denies irregular heart rhythm, Denies lightheadedness, Denies palpitations, Denies dyspnea, Denies dyspnea on exertion and Denies orthopnea Respiratory Respiratory: Denies cough, Denies dyspnea, Denies dyspnea on exertion and Denies wheezing Gastrointestinal Gastrointestinal: Denies abdominal pain, Denies change in bowel habits, Denies diarrhea, Denies nausea and Denies vomiting Genitourinary Genitourinary: Denies hematuria, Denies flank pain, Denies urinary incontinence and Denies urinary urgency Musculoskeletal Musculoskeletal: Denies back pain, Denies muscle weakness, Denies neck pain, Denies numbness and Denies tingling Comments: Left knee pain Integumentary/Breasts Skin/Breast: Denies pruritus, Denies erythema, Denies rash and Denies wounds Neurologic Neurologic: Denies behavioral changes, Denies confusion, Denies dizziness, Denies frequent falls, Denies loss of vision, Denies numbness, Denies tingling and Denies weakness Psychiatric Psychiatric: Denies anxiety, Denies behavioral changes, Denies confusion, Denies depression, Denies homicidal ideation and Denies suicidal ideation Endocrine Endocrine: Denies fatigue, Denies flushing and Denies palpitations Hematologic/Lymphatic Hematologic/Lymphatic: Denies easy bruising Allergic/Immunologic Allergic/Immunologic: Denies urticaria, Denies throat swelling and Denies wheezing Patient History <Emily Capellan PA-C - Last Filed: 04/08/23 18:31> Medical History Migraine with aura and without status migrainosus, not intractable (11/06/15) Surgical History History of third molar tooth extraction Status post laparoscopic supracervical hysterectomy (05/05/16) Status post tonsillectomy and adenoidectomy Social History Smoking Status: Never smoker Smoking Status: Never smoker alcohol intake frequency: 0-2 drinks per day Substance Use Type: does not use Exam <Emily Capellan PA-C - Last Filed: 04/08/23 18:31> Narrative Exam Narrative: Const General:?cooperative, healthy appearing and comfortable [facility] Head:?normal to inspection Ears:?hearing grossly normal bilaterally Nose:?external nose normal Face and sinus:?normal facial exam and sinuses nontender Mouth:?oral mucosae normal Throat:?posterior oropharynx normal Eyes General:?appearance normal, both eyes and all related structures Neck Neck:?normal visual inspection and no lymphadenopathy noted Resp Effort & Inspection:?normal respiratory effort Auscultation:?clear to auscultation bilaterally Cardio Rate:?regular rate Rhythm:?regular rhythm Musculoskeletal Mild tenderness to palpation of the posterior, inferior knee in the popliteal region. No bruising, deformities. There is full range of motion. Strength and sensation is intact. Patient is neurovascularly intact. Neuro General:?patient alert, patient awake and patient oriented x3 Initial Vital Signs Initial Vital Signs: Vital Signs Temperature 99.1 F 04/08/23 17:23 Pulse Rate 72 04/08/23 17:23 Respiratory Rate 18 04/08/23 17:23 Blood Pressure 149/81 H 04/08/23 17:23 Pulse Oximetry 100 04/08/23 17:23 Oxygen Delivery Method Room Air 04/08/23 17:23 <DO Kevin Cooper Last Filed: 04/08/23 19:09> Initial Vital Signs Initial Vital Signs: Vital Signs Temperature 99.1 F 04/08/23 17:23 Pulse Rate 72 04/08/23 17:23 Respiratory Rate 18 04/08/23 17:23 Blood Pressure 149/81 H 04/08/23 17:23 Pulse Oximetry 100 04/08/23 17:23 Oxygen Delivery Method Room Air 04/08/23 17:23 Course <Emily Capellan PA-C - Last Filed: 04/08/23 18:31> Orders Ordered: ED Orders 04/08/23 17:26 perip venous low extrem lt Stat Vital Signs Vital signs: Vital Signs - 8 hr 04/08/23 17:23 04/08/23 18:32 Temperature 99.1 F Pulse Rate 72 67 Respiratory Rate 18 14 Blood Pressure 149/81 H 129/75 Pulse Oximetry 100 98 Oxygen Delivery Method Room Air Room Air <DO Kevin Cooper Last Filed: 04/08/23 19:09> Orders Ordered: ED Orders 04/08/23 17:26 US periph venous low extrem lt Stat Vital Signs Vital signs: Vital Signs - 8 hr 04/08/23 17:23 04/08/23 18:32 Temperature 99.1 F Pulse Rate 72 67 Respiratory Rate 18 14 Blood Pressure 149/81 H 129/75 Pulse Oximetry 100 98 Oxygen Delivery Method Room Air Room Air MDM - Extremity (Nontraumatic) <Emily Capellan PA-C - Last Filed: 04/08/23 18:31> MDM Narrative Medical decision making narrative: 43-year-old female on hormone replacement therapy presents to the ED with 2 weeks of right knee pain. Concern for DVT versus musculoskeletal sprain/strain versus Perez cyst. Obtained ultrasound of the left leg which shows no DVTs. Ultrasound does show a Perez's cyst, which is likely the cause of patient's symptoms. Discussed findings with patient. Recommend supportive care. Recommend follow-up with PCP for possible ortho referral. ED return precautions were discussed with patient. Patient verbalized understanding. Medical records reviewed: Yes Discharge Plan Departure Patient Disposition: Home Clinical Impression: Perez cyst Instructions: DI for Perez Cyst Activity Restrictions/Additional Instructions: You were evaluated in the ED today for left-sided knee pain. The ultrasound of your left leg did not show any blood clots or DVTs. It did show a Perez cyst which is consistent with the pain on the back of the left knee. Perez cyst are managed conservatively to start with, with heat packs and ibuprofen. Please follow-up with your PCP as soon as possible. You may require a referral to ortho from your PCP if your symptoms do not improve over the next several days. Return to the ED if you have worsening symptoms, numbness, tingling, weakness. Prescriptions: No Action losartan PO Cepacol Sore Throat (caroline-men) 15-3.6 mg lozenge 1 мария mucous membrane Q2-4H PRN (Reason: sore throat) Qty: 16 0RF brimonidine [Mirvaso] 0.33 % gel 1 gm Topical Qty: 0 ivermectin [Soolantra] 1 % cream 1 moustapha TP Qty: 0 topiramate [Topamax] 25 MG tablet 25 mg PO BID Qty: 0 sumatriptan succinate [Imitrex] 50 MG tablet 50 mg PO QDAY Qty: 20 3RF Stand Alone Forms: Patient Portal/API <Erica Ochoa DO - Last Filed: 04/08/23 19:09> Cosign ED Attending Cosignature Attestation: I was immediately available in the department for consultation. Documentation has been reviewed.
[2023-04-08 18:32] VITALS: BP 129/75; PULSE 67; RESP 14; O2SAT 98
== END 2023-04-08 18:33 | disposition home or self-care (01) ==
PROVIDERS: Emergency Provider Student in an Organized Health Care Education/Training Program
DX: M71.22 Synovial cyst of popliteal space [Baker], left knee (principal)
CPT/HCPCS: 93971; 99281; 99282